=== PATIENT | male | born 1970 | race Caucasian/White ===

== ENCOUNTER 2018-04-24 11:00 | Emergency (ER) | payer MEDICAID, SELFPAY ==
--- NOTE | 2018-04-24 11:23 | NUR.NOTE ---
7 days ago pt twisted in the shower and developed lower back pain in L5-S1 10 out of 10 pain pain settles down to 8/10 most of the time but spikes 10/10 based on moment. NOTE Pt has fused vertebra L5-S1
[2018-04-24 11:28] VITALS: BP 132/99; PULSE 99; RESP 16; TEMP 36.7; O2SAT 98
--- NOTE | 2018-04-24 12:51 | ED.GENADUL_ITS ---
Discharge Plan Disposition Patient Disposition: HOME Condition: Improving Discharge Details Chief Complaint: Nk/Back Pain Clinical Impression: Bulging lumbar disc, Degenerative disc disease, lumbar, Back contusion, Fall Primary Care Provider: Robert Pearson ED Provider: Rowena Garcia Home Meds and New Rx's Prescriptions: New diazepam [Valium] 5 mg tablet 5 mg PO TID PRN (Reason: muscle spasm) Qty: 7 RF: 0 Discharge Instructions Instructions: Contusion in Adults (ED), Fall Prevention (ED) Additional Instructions: Alternate Tylenol and Motrin as needed and directed for pain. Take the oxycodone and Valium as needed and directed for pain not relieved with Tylenol or Motrin. Call your primary care doctor on Thursday to schedule follow-up appointment for reevaluation and for referral for MRI of her lumbar spine if symptoms persist or worsen. Return immediately to the emergency department any worsening or new concerning symptoms. Stand Alone Forms: Work Release Discharge Data Discharge Physician: Rowena Garcia Medical Decision Making 47-year-old male with a history of lumbar spine surgery in [id number] presents with lower back pain status post slip and fall getting out of the shower 1 week ago. Has chronic right leg pain/weakness/tingling status post back surgery, but now with new left-sided leg pain/weakness/tingling. No other cauda equina symptoms. Patient was able to ambulate around the ED but is hunched forward in pain. Vitals within normal limits. Patient has tenderness to palpation across his lower back and midline. No focal deficits. Neurovascularly intact. Abdomen soft and nontender. Diagnosis includes spine fracture, lumbar strain, disc herniation. As patient has had chronic leg pain weakness and numbness in the past few years since his back surgery, and has new sensations of tingling and weakness in his left leg but is able to ambulate with no neurologic deficits on exam, I am not suspecting an acute cauda equina syndrome. Will obtain a CT lumbar spine for further evaluation. Will give a dose of oxycodone, Valium as well as Toradol and reassess. 1600 --CT reviewed and notes a broad-based disc bulge at L3 to S1 which may represent degenerative disc disease. Patient states he feels much better after pain medication and he feels good to go home. Patient advised to call his primary care doctor on You morning to schedule follow-up appointment for reevaluation and for referral for MRI if symptoms persist. He is instructed return here immediately if he has any incontinence, worsening pain, sudden worsening leg weakness or any other acute concerns. Medical Records Medical records reviewed: Yes I reviewed the patient's medical records. Imaging Data Radiologic Study: Radiologist's impression: CT Lumbar Spine Without Contrast EXAM DATE/TIME: 04/24/2018 1:18 PM FINDINGS: Tubes, catheters and devices: Internal fixation device L5 and S1. 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 Discs/Spinal canal/Neural foramina: Broad-based disc bulge at L3/L4, L4/L5 and L5/S1. Soft tissues: Unremarkable. IMPRESSION: Broad-based disc bulge at L3/L4, L4/L5 and L5/S1. May represent degenerative disc disease. HPI General Mode of arrival: ambulatory . Date/Time Provider Initiated Documentation: 04/24/18 12:05 . Limitations to Documentation: no limitations . Information obtained by: patient . HPI Narrative: Patient is a 47-year-old male with a history of chronic lower back pain with history of lumbar spine disc surgery in 2013 who presents with lower back pain status post a slip and fall in shower 1 week ago. Patient states he was lifting his leg to get out of the shower and felt a pulling in his lower back that he fell backward hitting his lower back against the back of the tub. Patient states he has chronic right- sided leg pain weakness and tingling since his surgery in 2013, but since his fall 1 week ago now has left leg pain, tingling and weakness. Patient states he has been able to ambulate but with pain. Patient denies urinary or fecal incontinence, saddle anesthesia, abdominal pain, fever, or nausea or vomiting. Patient has been taking ibuprofen without relief. Patient states his last dose of ibuprofen was yesterday. Related Data Home Medications Medication Instructions Recorded Confirmed diazepam [Valium] 5 mg PO TID PRN #7 tab 04/24/18 Previous Rx's Medication Instructions Recorded diazepam [Valium] 5 mg PO TID PRN #7 tab 04/24/18 Allergies Allergy/AdvReac Type Severity Reaction Status Date / Time amitriptyline AdvReac Unverified 04/24/18 11:30 citalopram [From Celexa] AdvReac Unverified 04/24/18 11:30 General Stated Complaint: Nk/Back Pain JEFFREY: 3 Review of Systems Review of Systems All systems reviewed & are unremarkable except as noted in HPI and below Constitutional Reports as per HPI, Denies chills and Denies fever(s) Eyes Denies blurry vision ENT Denies dizziness, Denies sore throat and Denies throat swelling Cardiovascular Denies chest pain and Denies dyspnea Respiratory Denies cough and Denies dyspnea Gastrointestinal Denies abdominal pain, Denies diarrhea and Denies vomiting Genitourinary Denies hematuria and Denies dysuria Musculoskeletal Reports back pain and Reports tingling Integumentary/Breasts Denies lesions and Denies rash Neurologic Denies dizziness, Denies focal weakness and Reports tingling Allergic/Immunologic Denies throat swelling PFSH Medical History Chronic low back pain (Acute) Surgical History History of back surgery (Acute) S/P wrist surgery (Acute) Social History Smoking/Tobacco Use Status: Former Tobacco Use alcohol intake: current alcohol intake frequency: a few times a month substance use type: does not use Exam Const General: cooperative, healthy appearing and no acute distress HENMT Head: normal to inspection Face and sinus: normal facial exam Eyes General: appearance normal, both eyes and all related structures EOM: EOM intact bilaterally Neck Neck: normal visual inspection and No submandibular swelling Lymphatic: no lymphadenopathy noted Chest Chest: normal inspection of the chest and no tenderness Resp Effort & Inspection: normal respiratory effort and able to speak in complete sentences Auscultation: clear to auscultation bilaterally Cardio Rate: regular rate Rhythm: regular rhythm GI Inspection: normal to inspection Palpation: soft, not firm, not rigid and nontender Auscultation: normal bowel sounds Back/Spine/Pelvis Thoracic/Lumbar Spine: straight leg raise negative bilaterally, paraspinal tenderness (b/l lumbar) and other (Well-healed incisional scar midline lumbar spine) Pelvis: no pain with anterior-posterior compression and no pain with lateral compression Skin General skin exam: no rashes or lesions noted Neuro General: alert, awake, oriented x3 and gait abnormal (walking hunched forward at lumbar spine) Cognition: normal cognition Speech: speech normal Motor: muscle tone normal throughout and strength 5/5 throughout Sensory Exam: no sensory deficits noted DTR's: Rt Patellar: 1+, Lt Patellar: 1+, Rt Ankle: 1+ and Lt Ankle: 1+ Plantar Reflexes: Equivocal: bilateral Extrem General: normal to inspection, full ROM, normal capillary refill, no calf tenderness bilaterally and no edema Psych Appearance: grossly normal Mental Status: mental status grossly normal Speech and Movement: speech and movement normal Affect: normal affect Course Vital Signs Temperature 98.1 F 04/24/18 11:28 Pulse 99 H 04/24/18 11:28 Respiratory Rate 16 04/24/18 11:28 Blood Pressure 132/99 H 04/24/18 11:28 Pulse Oximetry 98 04/24/18 11:28 Temperature 98.1 F 04/24/18 11:28 Temperature Source Skin 04/24/18 11:28 Pulse 99 H 04/24/18 11:28 Respiratory Rate 16 04/24/18 11:28 Respiratory Effort 04/24/18 11:31 Blood Pressure 132/99 H 04/24/18 11:28 Blood Pressure Position Sitting 04/24/18 11:28 Pulse Oximetry 98 04/24/18 11:28 Oxygen Delivery Method Room Air 04/24/18 11:28 Oxygen Flow Rate 0 04/24/18 11:28 Pain Level 9 04/24/18 11:28
[2018-04-24] MEDS: Diazepam 5 MG TAB PO (13:28)
[2018-04-24] MEDS: Ketorolac 60 MG/2 ML VIAL IM (13:28)
[2018-04-24] MEDS: oxyCODONE 5 MG TAB (13:29)
--- NOTE | 2018-04-24 13:45 | DI.CT_ITS ---
SYMPTOM/DIAGNOSIS: S/P FALL ON BACK, PAIN, ? FX OR HERNIATED DISC, BILAT LEG SYMPTOMS LUMBAR SPINE CT: Posterior fusion hardware is seen at L 5-S 1. There is no evidence of an acute fracture. There are degenerative disc changes, greatest at L 2-3. There is no gross evidence of a disc herniation. The aorta is normal in diameter. IMPRESSION: Degenerative and post surgical changes. No acute abnormality.
--- NOTE | 2018-04-24 14:41 | DI.VRAD_ITS ---
EXAM: CT Lumbar Spine Without Contrast EXAM DATE/TIME: 04/24/2018 1:18 PM CLINICAL HISTORY: 47 years old, male; Pain; Low back pain and lumbago with sciatica; Bilateral; Prior surgery; Surgery date: 6+ months; Surgery type: 2013; Patient HX: Low back pain, with bilateral leg symptoms. Increased back pain since this morning no known injury. Prev surgery in 2013. TECHNIQUE: Axial computed tomography images of the lumbar spine without intravenous contrast. All CT scans at this facility use at least one of these dose optimization techniques: automated exposure control; mA and/or kV adjustment per patient size (includes targeted exams where dose is matched to clinical indication); or iterative reconstruction. Coronal and sagittal reformatted images were created and reviewed. COMPARISON: [facility] LUMBAR SP 2 VIEW 09/02/2016 10:42 AM FINDINGS: Tubes, catheters and devices: Internal fixation device L5 and S1. 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 Discs/Spinal canal/Neural foramina: Broad-based disc bulge at L3/L4, L4/L5 and L5/S1. Soft tissues: Unremarkable. IMPRESSION: Broad-based disc bulge at L3/L4, L4/L5 and L5/S1. May represent degenerative disc disease. Dictated and Authenticated by: Daniel Mccann MD. Ordering:ARLENE Guaman MD
[2018-04-24 15:58] VITALS: BP 119/74; PULSE 64; RESP 16; TEMP 36.3; O2SAT 98
[2018-04-24] MEDS: oxyCODONE 5 MG TAB 10 MG PO (16:31)
== END 2018-04-24 16:30 | disposition home or self-care (01) ==
PROVIDERS: Emergency Provider Physician Assistant; PCP Specialist/Technologist Athletic Trainer
DX: S30.0XXA Contusion of lower back and pelvis, initial encounter (principal); M51.27 Other intervertebral disc displacement, lumbosacral region; W18.2XXA Fall in (into) shower or empty bathtub, initial encounter
CPT/HCPCS: 96372; 99284; 72131; J1885